=== PATIENT | female | born 1995 | race Caucasian/White ===

== ENCOUNTER → 2023-03-24 | Outpatient (CLI) | payer OTHER ==
[2023-03-24 14:14] LABS: HEMATOCRIT 40.4 % (36.0-47.0); HEMOGLOBIN 13.6 g/dl (12.0-15.5); MEAN CORPUSCULAR HEMOGLOBIN 30.6 pg (27.0-33.0); MEAN CORPUSCULAR HGB CONC 33.7 g/dl (32.0-36.5); MEAN CORPUSCULAR VOLUME 90.8 fl (80.0-96.0); PLATELET COUNT, AUTOMATED 276 10^3/uL (150-450); RED BLOOD COUNT 4.45 10^6/uL (4.00-5.40); WHITE BLOOD COUNT 8.6 10^3/uL (4.0-10.0)
[2023-03-24 14:48] LABS: HIV 1&2 SCREEN NEGATIVE (NEGATIVE)
[2023-03-24 14:56] LABS: HEPATITIS C VIRUS ABY INDEX 0.02 INDEX (<0.8)
== END ==
LOC: M PLALAB 11:04
PROVIDERS: ATTEND Advanced Practice Midwife
DX: Z34.01 Encounter for supervision of normal first pregnancy, first trimester (principal); Z3A.00 Weeks of gestation of pregnancy not specified

== ENCOUNTER → 2023-05-27 | Outpatient (CLI) | payer OTHER | LOC: M RAD 13:28 | PROVIDERS: ATTEND Advanced Practice Midwife | DX: Z34.02 Encounter for supervision of normal first pregnancy, second trimester (principal) ==

== ENCOUNTER → 2023-07-21 | Outpatient (CLI) | payer OTHER | LOC: M WHC 13:52 | PROVIDERS: ATTEND Advanced Practice Midwife | DX: O44.20 Partial placenta previa NOS or without hemorrhage, unspecified trimester (principal); Z3A.28 28 weeks gestation of pregnancy ==

== ENCOUNTER → 2023-07-21 | Outpatient (CLI) | payer OTHER ==
[2023-07-21 18:07] LABS: HEMATOCRIT 33.3 % (36.0-47.0); MEAN CORPUSCULAR HEMOGLOBIN 29.8 pg (27.0-33.0); MEAN CORPUSCULAR VOLUME 90.2 fl (80.0-96.0); PLATELET COUNT, AUTOMATED 280 10^3/uL (150-450); RED BLOOD COUNT 3.69 10^6/uL (4.00-5.40); WHITE BLOOD COUNT 12.8 10^3/uL (4.0-10.0)
== END ==
LOC: M PLALAB 13:55
PROVIDERS: ATTEND Advanced Practice Midwife
DX: O44.20 Partial placenta previa NOS or without hemorrhage, unspecified trimester (principal); Z3A.00 Weeks of gestation of pregnancy not specified

== ENCOUNTER → 2023-08-06 | Outpatient (CLI) | payer OTHER ==
[2023-08-06 18:59] LABS: ALBUMIN 2.6 G/DL (3.2-5.2); ALKALINE PHOSPHATASE 75 U/L (46-116); ALT/SGPT 20 U/L (7.0-40); AST/SGOT 20 U/L (<34); BILIRUBIN,TOTAL 0.4 MG/DL (0.3-1.2); BLOOD UREA NITROGEN 7 MG/DL (9-23); CALCIUM LEVEL 8.5 MG/DL (8.5-10.1); CARBON DIOXIDE LEVEL 23 MMOL/L (20-31); CHLORIDE LEVEL 105 MMOL/L (98-107); CREATININE FOR GFR 0.57 MG/DL (0.55-1.30); GLOMERULAR FILTRATION RATE > 60.0 (>60); GLUCOSE, FASTING 127 MG/DL (60-100); POTASSIUM SERUM 3.6 MMOL/L (3.5-5.1); SODIUM LEVEL 136 MMOL/L (136-145); TOTAL PROTEIN 5.4 G/DL (5.7-8.2)
== END ==
LOC: M PLALAB 14:45
PROVIDERS: ATTEND Advanced Practice Midwife
DX: O99.713 Diseases of the skin and subcutaneous tissue complicating pregnancy, third trimester (principal); Z3A.00 Weeks of gestation of pregnancy not specified

== ENCOUNTER → 2023-08-20 | Outpatient (CLI) | payer OTHER | LOC: M WHC 14:02 | PROVIDERS: ATTEND Advanced Practice Midwife | DX: O44.40 Low lying placenta NOS or without hemorrhage, unspecified trimester (principal) ==

== ENCOUNTER → 2023-09-09 | Outpatient (REF) | payer OTHER | LOC: M SFHCWAGY 09:35 | PROVIDERS: ATTEND Obstetrics & Gynecology | DX: Z36.89 Encounter for other specified antenatal screening (principal); Z3A.35 35 weeks gestation of pregnancy ==

== ENCOUNTER 2023-09-21 15:10 | Inpatient (IN) | payer OTHER ==
[2023-09-21] VITALS (7 sets, daily range): BP systolic 114–131; BP diastolic 67–82; O2SAT 97–98
[~2023-09-21] VITALS: Ht 172.7 cm; Wt 91.4 kg
[2023-09-21] MEDS ORDERED: URSO300C3 PO (15:29)
[2023-09-21] MEDS ORDERED: PREN1CHW4 PO (15:29)
[2023-09-21] MEDS ORDERED: ACET325C5 PO (15:29)
[2023-09-21] MEDS ORDERED: UNIS25TA3 PO (15:30)
[2023-09-21] MEDS ORDERED: HOME MED LIST COMPLETE! XX SCH (15:35)
[2023-09-21] MEDS ORDERED: METHYLERGONOVINE MALEATE 0.2MG/ML 1ML VIAL IM PRN (15:45)
[2023-09-21] MEDS ORDERED: OXYTOCIN INJ 10UNITS/ML 1ML VIAL IM PRN (15:45)
[2023-09-21] MEDS ORDERED: TRANEXAMIC ACID INJection 1,000 MG in NS 100 ML IV PRN (15:45)
[2023-09-21] MEDS ORDERED: LIDOCAINE 1% MDV 20ML VIAL INFIL PRN (15:45)
[2023-09-21] MEDS ORDERED: LR 1,000 ML IV SCH (15:45)
[2023-09-21] MEDS ORDERED: CARBOPROST TROMETHAMINE 250 MCG/ML AMP IM PRN (15:45)
[2023-09-21] MEDS ORDERED: OXYTOCIN DRIP 30 UNITS in IV 1 EA IV PRN ×3 (15:45)
[2023-09-21] MEDS ORDERED: OXYTOCIN INJ 10UNITS/ML 1ML VIAL IV PRN (15:45)
[2023-09-21 16:08] LABS: HEMATOCRIT 32.3 % (36.0-47.0); HEMOGLOBIN 10.4 g/dl (12.0-15.5); MEAN CORPUSCULAR HEMOGLOBIN 26.5 pg (27.0-33.0); MEAN CORPUSCULAR HGB CONC 32.2 g/dl (32.0-36.5); MEAN CORPUSCULAR VOLUME 82.2 fl (80.0-96.0); PLATELET COUNT, AUTOMATED 287 10^3/uL (150-450); RED BLOOD COUNT 3.93 10^6/uL (4.00-5.40); WHITE BLOOD COUNT 10.5 10^3/uL (4.0-10.0)
[2023-09-21] MEDS: miSOPROStol 50MCG 1/2 TABLET PO PRN (16:57)
[2023-09-21 17:46] LABS: HEPATITIS B SURFACE ANTIGEN NEGATIVE (NEGATIVE)
[2023-09-21 19:23] LABS: GC DNA AMPLIFICATION NEGATIVE (NEGATIVE)
[2023-09-21] MEDS: ursodioL 300MG CAP PO SCH (21:04)
[2023-09-21] MEDS: diphenhydrAMINE 25MG CAP PO PRN (21:05)
[2023-09-21] MEDS: ACETAMINOPHEN 500 MG TAB PO PRN (21:07)
[2023-09-22] VITALS (52 sets, daily range): BP systolic 97–148; BP diastolic 52–87
[2023-09-22] MEDS: OXYTOCIN DRIP 30 UNITS in IV 1 EA IV SCH ×3 (14:41→21:56)
[2023-09-22] MEDS: LR 1,000 ML IV SCH ×2 (14:41→14:44)
[2023-09-22] MEDS ORDERED: OXYTOCIN DRIP 30 UNITS in IV 1 EA IV SCH (15:00)
[2023-09-22] MEDS: LACTATED RINGER'S 1000 ML IV STA ×2 (15:50→20:05)
[2023-09-22] MEDS ORDERED: NALOXONE INJ 0.4MG/1ML VIAL IV PRN (16:15)
[2023-09-22] MEDS ORDERED: diphenhydrAMINE 50MG/ML VIAL IV PRN (16:15)
[2023-09-22] MEDS ORDERED: ONDANSETRON 4MG 2ML VIAL IV PRN (16:15)
[2023-09-22] MEDS ORDERED: EPIDURAL/PCA KEYS XX PRN (16:15)
[2023-09-22] MEDS: FENTANYL/ROPIVACAINE/NACL BAG 100 ML EPIDURAL SCH (16:52)
[2023-09-22] MEDS: ePHEDrine SULFATE 25 MG/5 ML(5MG/ML) SYRINGE IVP PRN (17:13)
[2023-09-22] MEDS: LR 500 ML IV PRN (17:15)
[2023-09-22] MEDS ORDERED: LR 1,000 ML IV SCH (20:05)
[2023-09-22] MEDS: AZITHROMYCIN INJ 500 MG, VIAL MATE ADAPTER 1 EACH in NS 250 ML IV ONE (20:14)
[2023-09-22] MEDS: ceFAZolin SOD 2 GM in IV 1 EA IV ONE (20:14)
[2023-09-22] MEDS: BICITRA 30ML SOLN UDC PO ONE (20:14)
[2023-09-22 21:04] LABS: CORD GAS ABE V -7.4; CORD GAS HCO3 V 19.3 MMOL/L; CORD GAS O2 SAT V 76.6 %; CORD GAS PCO2 V 43.4 mmHg; CORD GAS PH V 7.266 UNITS; CORD GAS PO2 V 36.5 mmHg; CORD GAS SBC V 18.1 MMOL/L; CORD GAS TCO2 V 20.6 MMOL/L
[2023-09-22 21:05] LABS: CORD GAS HCO3 A 20.6 MMOL/L; CORD GAS O2 SAT A 31.4 %; CORD GAS PCO2 A 59.8 mmHg; CORD GAS PH A 7.155 UNITS; CORD GAS PO2 A 19.2 mmHg; CORD GAS TCO2 A 22.4 MMOL/L
[2023-09-22] MEDS ORDERED: ACETAMINOPHEN TAB 650MG DOSE (2X325MG) PO PRN (21:35)
[2023-09-22] MEDS ORDERED: RHO(D) IMMUNE GLOBULIN/MALTOSE 500MCG(2500IU)/2.2ML VIAL (WINRHO) IM SCH (21:35)
[2023-09-22] MEDS ORDERED: METHYLERGONOVINE MALEATE 0.2 MG TAB PO PRN (21:35)
[2023-09-22] MEDS: METHYLERGONOVINE MALEATE 0.2MG/ML 1ML VIAL IM STA (21:55)
[2023-09-22] MEDS: ACETAMINOPHEN 500 MG TAB PO PRN (23:13)
[2023-09-23 00:13] VITALS: BP 128/78; O2SAT 98
[2023-09-23] MEDS: IBUPROFEN 600MG TAB PO PRN (02:46)
[2023-09-23 06:00] VITALS: BP 129/70; O2SAT 97
[2023-09-23] MEDS: PRENATAL VITAMINS CHEWABLE TABLET PO SCH ×2 (09:00→09:25)
[2023-09-23 17:45] VITALS: BP 107/67; O2SAT 100
[2023-09-23] MEDS: IBUPROFEN 800 MG TAB PO PRN (17:58)
[2023-09-23] MEDS: DOCUSATE SODIUM 100MG CAPSULE PO PRN (19:53)
[2023-09-23] MEDS: DIBUCAINE 1% OINTMENT 30GM TOP PRN (22:44)
[2023-09-24] MEDS: MEASLES,MUMPS,RUBELLA VACCINE INJ (MMR-II) SC.IMMUN ONE (09:00)
== END 2023-09-24 13:20 | disposition home or self-care (01) | DRG 805 ==
LOC: M LDI 15:10 → M OBS 09-22 23:54
PROVIDERS: ADMIT Obstetrics & Gynecology; ATTEND Obstetrics & Gynecology
PROC: 10E0XZZ Delivery of Products of Conception, External Approach (ICD-10-PCS; principal; 2023-09-22)
PROC: 0KQM0ZZ Repair Perineum Muscle, Open Approach (ICD-10-PCS; 2023-09-22)
PROC: 3E033VJ Introduction of Other Hormone into Peripheral Vein, Percutaneous Approach (ICD-10-PCS; 2023-09-22)
DX: O26.62 Liver and biliary tract disorders in childbirth (principal); Z37.0 Single live birth; K83.1 Obstruction of bile duct; O36.0130 Maternal care for anti-D [Rh] antibodies, third trimester, not applicable or unspecified; Z3A.37 37 weeks gestation of pregnancy; O70.1 Second degree perineal laceration during delivery

== ENCOUNTER 2025-02-01 10:56 | Day surgery (SDC) | payer OTHER ==
[~2025-02-01] VITALS: Ht 172.7 cm; Wt 74.8 kg
[~2025-02-01 10:56] MED LIST: ACET325C5 PO; PREN1CHW4 PO; UNIS25TA3 PO; URSO300C3 PO
[2025-02-01] MEDS ORDERED: KETOROLAC 30 MG/ML 1 ML VIAL As Ordered ONE (13:04)
[2025-02-01] MEDS ORDERED: ONDANSETRON 4MG 2ML VIAL As Ordered ONE (13:04)
[2025-02-01] MEDS ORDERED: LIDOCAINE 2% 100 MG/5 ML SDV (FOR ANES.) As Ordered ONE (13:04)
[2025-02-01] MEDS ORDERED: ACETAMINOPHEN 1000MG/100ML IV BAG As Ordered ONE (13:04)
[2025-02-01] MEDS ORDERED: dexAMETHasone 4 MG/ML 1 ML VIAL As Ordered ONE (13:04)
[2025-02-01] MEDS ORDERED: MIDAZOLAM INJ 2 MG/2 ML VIAL As Ordered ONE (13:08)
[2025-02-01] MEDS: LIDOCAINE 1% SDV 30 ML VIAL As Ordered ONE (14:20)
[2025-02-01] MEDS: METHYLERGONOVINE MALEATE 0.2 MG/ML 1 ML VIAL As Ordered ONE (14:49)
[2025-02-01] MEDS ORDERED: LR 1,000 ML IV SCH (15:10)
[2025-02-01] MEDS: DOXYCYCLINE HYCLATE 100 MG TABLET PO ONE (15:20)
[2025-02-01] MEDS: KETOROLAC 30 MG/ML 1 ML VIAL IV ONE (15:35)
[2025-02-01 15:50] VITALS: BP 125/83; TEMP 98; O2SAT 100
[2025-02-01] MEDS ORDERED: ACETAMINOPHEN 500 MG TAB PO ONE (16:00)
[2025-02-02 11:04] LABS: PLATELET COUNT, AUTOMATED 287 10^3/uL (150-450)
== END 2025-02-01 16:05 | disposition home or self-care (01) ==
LOC: M SDC 10:56
PROVIDERS: ATTEND Specialist
DX: O02.1 Missed abortion (principal)
CPT/HCPCS: 59820; 85027; 88305; J0131; J1100; J1885; J2250; J2405; J3010

== ENCOUNTER → 2025-03-01 | Outpatient (REF) | payer OTHER ==
[2025-03-01 17:48] LABS: APPEARANCE, URINE CLEAR (CLEAR); BACTERIA, URINE AUTO NEGATIVE (NEGATIVE); BILIRUBIN, URINE AUTO NEGATIVE (NEGATIVE); BLOOD, URINE BLOOD 1+ (NEGATIVE); GLUCOSE, URINE (UA) AUTO NEGATIVE (NEGATIVE); KETONE, URINE AUTO NEGATIVE (NEGATIVE); LEUKOCYTE ESTERASE, URINE AUTO NEGATIVE (NEGATIVE); MUCUS, URINE SMALL (NEGATIVE); NITRITE, URINE AUTO NEGATIVE (NEGATIVE); PROTEIN, URINE AUTO NEGATIVE (NEGATIVE); RBC, URINE AUTO 2 /HPF (0-3); SPECIFIC GRAVITY URINE AUTO 1.015 (1.002-1.035); SQUAMOUS EPITHELIAL CELL UR AU 0 /HPF (0-6); UROBILINOGEN, URINE AUTO 0.2 mg/dL (0.0-2.0); WBC, URINE AUTO 2 /HPF (0-3)
== END ==
LOC: M SMT 17:03
PROVIDERS: ATTEND Physician Assistant
DX: R39.9 Unspecified symptoms and signs involving the genitourinary system (principal)